=== PATIENT | female | born 1935 | race Caucasian/White ===

== ENCOUNTER 2023-04-18 13:14 | Inpatient (IN) | payer OTHER ==
[2023-04-18 14:20] LABS: Absolute Lymphocytes (CBC) 1.4 K/uL (0.7-4.9); Hematocrit 38.7 % (36.0-45.0); Lymphocytes % 20.6 % (15.3-44.8); MCV 101.6 fL (80-100); MPV 8.6 fL (7.6-11.3); RBC Red Blood Cell Count 3.81 M/uL (3.86-4.86)
[2023-04-18 14:26] LABS: Potassium 4.3 mEq/L (3.5-5.1); Troponin High Sensitivity 4.9 pg/mL (<58.9)
--- NOTE | 2023-04-18 14:33 | RAD REPORT ---
EXAM DESCRIPTION: Veronica Single View04/18/2023 2:22 pm CLINICAL HISTORY: Tachycardia COMPARISON: none FINDINGS: Moderate left pleural effusion with basilar atelectasis Right lung appears clear of acute infiltrate. Heart is mildly enlarged
--- NOTE | 2023-04-18 14:38 | ER ---
Nurse's Notes [facility] Name: Magda De Age: 87 yrs Sex: Female : 1935 Arrival Date: 04/18/2023 Time: 13:14 Bed 3 Private MD: Diagnosis: Unspecified atrial fibrillation;Tachycardia, unspecified Presentation: 04/18 13:53 Chief complaint: Patient states: EKG done prior to procedure, showed A. Fib, pt jl7 currently taking Eliquis, pt's daughter reports unsure of A Fib history, pt denies CP. Coronavirus screen: At this time, the client does not indicate any symptoms associated with coronavirus-19. Ebola Screen: No symptoms or risks identified at this time. Initial Sepsis Screen: Does the patient meet any 2 criteria? No. Patient's initial sepsis screen is negative. Does the patient have a suspected source of infection? No. Patient's initial sepsis screen is negative. Risk Assessment: Do you want to hurt yourself or someone else? Patient reports no desire to harm self or others. Onset of symptoms is unknown. Care prior to arrival: None. 13:53 Method Of Arrival: Wheelchair jl7 13:53 Acuity: OCTAVIO 2 jl7 Triage Assessment: 13:56 General: Appears in no apparent distress. uncomfortable, Behavior is calm, cooperative, jl7 appropriate for age. Pain: Denies pain. Respiratory: Reports none Onset: The symptoms/episode began/occurred at an unknown time. the patient has mild shortness of breath. Historical: - Allergies: 13:56 No Known Allergies; jl7 - Home Meds: 13:56 Eliquis oral [Active]; levothyroxine oral [Active]; jl7 - PMHx: 13:56 Hypothyroidism; high cholesterol; jl7 - Immunization history:: Adult Immunizations unknown. - Social history:: Smoking status: Patient denies any tobacco usage or history of. Screenin:05 [facility] ED Fall Risk Assessment (Adult) History of falling in the last 3 months, cm10 including since admission No falls in past 3 months (0 pts) Confusion or Disorientation No (0 pts) Intoxicated or Sedated No (0 pts) Impaired Gait No (0 pts) Mobility Assist Device Used Yes (1 pt) Altered Elimination No (0 pt) Score/Fall Risk Level 0 - 2 = Low Risk Oriented to surroundings, Maintained a safe environment, Hourly rounding (assess needs \T\ fall precautionary measures) done. Abuse screen: Denies threats or abuse. Denies injuries from another. Nutritional screening: No deficits noted. Tuberculosis screening: No symptoms or risk factors identified. Assessment: 14:06 General: Appears in no apparent distress. comfortable, Behavior is calm, cooperative. cm10 Pain: Denies pain. Neuro: No deficits noted. Level of Consciousness is awake, alert, obeys commands, Oriented to person, place, time, situation. Cardiovascular: No deficits noted. Heart tones S1 S2 Capillary refill < 3 seconds Rhythm is atrial fibrillation. Respiratory: Airway is patent Respiratory effort is even, unlabored, Respiratory pattern is regular, symmetrical, Breath sounds are clear bilaterally. 16:03 Reassessment: No changes from previously documented assessment. Patient and/or family cm10 updated on plan of care and expected duration. Pain level reassessed. Patient is alert, oriented x 3, equal unlabored respirations, skin warm/dry/pink. Pt eating lunch. 17:29 Reassessment: Reassessment: Attempt to call report at this time, nurse not available. cm10 17:30 Reassessment: No changes from previously documented assessment. Patient and/or family cm10 updated on plan of care and expected duration. Pain level reassessed. Patient is alert, oriented x 3, equal unlabored respirations, skin warm/dry/pink. 17:50 Reassessment: Attempt to give report multiple times with no success. cm10 18:00 Reassessment: After multiple unsuccessful attempts to give phone report, bedside report cm10 to be given. Vital Signs: 13:53 BP 133 / 76; Pulse 125; Resp 17; Temp 97.9; Pulse Ox 97% ; Weight 62.14 kg; Height 5 jl7 ft. 7 in. ; Pain 0/10; 14:37 BP 122 / 87; Pulse 94; Resp 18; Pulse Ox 96% on R/A; cm10 15:30 BP 134 / 95; Pulse 97; Resp 15; Pulse Ox 95% on R/A; cm10 16:00 BP 138 / 97; Pulse 112; Resp 18; Pulse Ox 95% on R/A; cm10 17:00 BP 122 / 74; Pulse 96; Resp 18; Pulse Ox 94% on R/A; cm10 17:30 BP 136 / 84; Pulse 92; Resp 17; Pulse Ox 96% on R/A; cm10 13:53 Body Mass Index 21.46 (62.14 kg, 170.18 cm) jl7 13:53 Pain Scale: Adult 7 ED Course: 13:14 Patient arrived in ED. rg4 13:34 David Franklin DO is Attending Physician. ms3 13:53 Smiley Lepe, RN is Primary Nurse. cm10 13:55 Triage completed. jl7 13:56 Arm band placed on right wrist. jl7 14:05 Basic Metabolic Panel Sent. cm10 14:05 CBC with Diff Sent. cm10 14:05 Magnesium Sent. cm10 14:05 Troponin HS Sent. cm10 14:05 Initial lab(s) drawn, by me, sent to lab. Inserted saline lock: 20 gauge in right cm10 forearm, using aseptic technique. Blood collected. 14:06 Patient has correct armband on for positive identification. Placed in gown. Bed in low cm10 position. Call light in reach. Side rails up X2. Provided Education on: N/A. 14:16 Consulted physician to see patient. Cardiology. cm10 14:24 XRAY Chest (1 view) In Process Unspecified. EDMS 14:37 Madhavi Chavez MD is Hospitalizing Provider. ms3 15:25 Rodolfo Epps is Hospitalizing Provider. ms3 17:31 No provider procedures requiring assistance completed. Patient admitted, IV remains in cm10 place. Administered Medications: 14:50 Drug: Sotalol PO 80 mg {Note: BP 122/87, per Dr. Franklin ok to give..} Route: PO; cm10 15:51 Follow up: Response: No adverse reaction cm10 Medication: 14:06 VIS not applicable for this client. cm10 Outcome: 14:38 Decision to Hospitalize by Provider. ms3 18:18 Admitted to Tele accompanied by nurse, via wheelchair, room 403, Report called to 10 Bedside report given to MARK Lagunas 18:18 Condition: good 18:18 Instructed on the need for admit. 18:22 Patient left the ED. cm10 Signatures: Dispatcher [employer] EDMS Sarah Navarro rg4 Scottie James RN RN jl7 David Franklin DO DO ms3 Roberth, Smiley, RN RN cm10
--- NOTE | 2023-04-18 14:38 | EDPHYS ---
Physician Documentation [facility] Name: Magda De Age: 87 yrs Sex: Female : 1935 Arrival Date: 04/18/2023 Time: 13:14 Bed 3 Private MD: ED Physician David Franklin HPI: 04/18 14:38 This 87 yrs old Female presents to ER via Wheelchair with complaints of Shortness Of ms3 Breath, Afib. 14:38 87-year-old female with past medical history of hypothyroidism and hyperlipidemia ms3 presents from [facility] [place] for atrial fibrillation. Patient's daughter states patient was scheduled to have a nerve block on her knee when the EKG showed atrial fibrillation. Patient was then sent to the emergency department for cardiac clearance.. Historical: - Allergies: 13:56 No Known Allergies; jl7 - Home Meds: 13:56 Eliquis oral [Active]; levothyroxine oral [Active]; jl7 - PMHx: 13:56 Hypothyroidism; high cholesterol; jl7 - Immunization history:: Adult Immunizations unknown. - Social history:: Smoking status: Patient denies any tobacco usage or history of. ROS: 14:38 Constitutional: Negative for fever, and chills. ENT: Negative for injury, pain, and ms3 discharge, Neck: Negative for injury, pain, and swelling, Cardiovascular: Negative for chest pain, and palpitations. Respiratory: Negative for shortness of breath, cough, wheezing, and pleuritic chest pain, Abdomen/GI: Negative for abdominal pain, nausea, vomiting, diarrhea, and constipation, Skin: Negative for injury, rash, and discoloration. 14:38 All other systems are negative. Exam: 14:38 Constitutional: This is a well developed, well nourished patient who is awake, alert, ms3 and in no acute distress. Head/Face: Normocephalic, atraumatic. Chest/axilla: Normal chest wall appearance and motion. Nontender with no deformity. 14:53 ECG was reviewed by the Attending Physician. ms3 Vital Signs: 13:53 BP 133 / 76; Pulse 125; Resp 17; Temp 97.9; Pulse Ox 97% ; Weight 62.14 kg; Height 5 jl7 ft. 7 in. ; Pain 0/10; 14:37 BP 122 / 87; Pulse 94; Resp 18; Pulse Ox 96% on R/A; cm10 15:30 BP 134 / 95; Pulse 97; Resp 15; Pulse Ox 95% on R/A; cm10 16:00 BP 138 / 97; Pulse 112; Resp 18; Pulse Ox 95% on R/A; cm10 17:00 BP 122 / 74; Pulse 96; Resp 18; Pulse Ox 94% on R/A; cm10 17:30 BP 136 / 84; Pulse 92; Resp 17; Pulse Ox 96% on R/A; cm10 13:53 Body Mass Index 21.46 (62.14 kg, 170.18 cm) jl7 13:53 Pain Scale: Adult jl7 MDM: 13:42 Patient medically screened. ms3 14:48 Differential diagnosis: Myocardial Infarction A fib vs Electrolyte abnormality. Data ms3 reviewed: vital signs, nurses notes, lab test result(s), EKG, radiologic studies, and as a result, I will admit patient. Consideration of Admission/Observation Patient was admitted/placed on observation. Management of patient was discussed with the following: Hospitalist: Dr Epps. Bark Scaler: Dr Ni. I considered the following discharge prescriptions or medication management in the emergency department Medications were administered in the Emergency Department. See MAR. Independent interpretation of the following test(s) in the Emergency Department EKG: See my EKG interpretation above eyelet row marker: rate is 102 beats/min, Rhythm is atrial fibrillation, with no ectopy, Interpretation: atrial fibrillation, tachycardia. Historians other than the Patient: Daughter/Son: Patient's daughter. External Records Reviewed: EKG performed at surgery center prior to arrival shows atrial fibrillation with a heart rate of 113, normal axis. Care significantly affected by the following chronic conditions: Hypothyroidism, HLD. Counseling: I had a detailed discussion with the patient and/or guardian regarding: the historical points, exam findings, and any diagnostic results supporting the discharge/admit diagnosis, lab results, radiology results, the need for further work-up and treatment in the hospital. ED course: Case discussed with Dr. Harris. If creatinine normal patient to begin sotalol 80 mg twice daily and will need observation. Discussed case with Dr. Beverly suarez and he accepts patient as observation.. 04/18 13:42 Order name: Basic Metabolic Panel; Complete Time: 14:33 ms3 04/18 13:42 Order name: CBC with Diff; Complete Time: 14:33 ms3 04/18 13:42 Order name: Magnesium; Complete Time: 14:33 ms3 04/18 13:42 Order name: Troponin HS; Complete Time: 14:33 ms3 04/18 13:42 Order name: XRAY Chest (1 view); Complete Time: 14:33 ms3 04/18 13:42 Order name: EKG; Complete Time: 13:43 ms3 04/18 13:42 Order name: Cardiac monitoring; Complete Time: 13:51 ms3 04/18 13:42 Order name: EKG - Nurse/Tech; Complete Time: 13:51 ms3 04/18 13:42 Order name: IV Saline Lock; Complete Time: 13:51 ms3 04/18 13:42 Order name: Labs collected and sent; Complete Time: 13:51 ms3 04/18 13:42 Order name: O2 Per Protocol; Complete Time: 13:51 ms3 04/18 13:42 Order name: O2 Sat Monitoring; Complete Time: 13:51 ms3 EC:53 Rate is 113 beats/min. Rhythm is irregularly irregular. QRS Hollis is Normal. QRS ms3 interval is normal. Clinical impression: Atrial Fibrillation and with RVR. Interpreted by me. Reviewed by me. Administered Medications: 14:50 Drug: Sotalol PO 80 mg {Note: BP 122/87, per Dr. Franklin ok to give..} Route: PO; cm10 15:51 Follow up: Response: No adverse reaction cm10 Disposition Summary: 04/18/23 14:38 Hospitalization Ordered Hospitalization Status: Observation ms3 Location: Telemetry/MedSurg (observation) ms3 Condition: Stable ms3 Problem: new ms3 Symptoms: are unchanged ms3 Bed/Room Type: Standard ms3 Provider: Rodolfo Epps(04/18/23 15:25) ms3 Room Assignment: [facility](04/18/23 17:20) Diagnosis - Unspecified atrial fibrillation ms3 - Tachycardia, unspecified ms3 Forms: - Medication Reconciliation Form ms3 - SBAR form ms3 Signatures: Dispatcher [employer] Carmen Green RN RN dw Leal, Jahala, RN RN jl7 David Franklin DO DO ms3 Roberth, Smiley, RN RN cm10 Corrections: (The following items were deleted from the chart) 15: 14:38 Madhavi Chavez ms3 ms3 17: 14:38 ms3 dw
[2023-04-18] MEDS ORDERED: SOTALOL HCL 80 MG TAB ONE (14:47)
--- NOTE | 2023-04-18 16:05 | P.HP ---
Certification for Inpatient Patient admitted to: Observation With expected LOS: <2 Midnights Practitioner: I am a practitioner with admitting privileges, knowledge of patient current condition, hospital course, and medical plan of care. Services: Services provided to patient in accordance with Admission requirements found in Title 42 Section 412.3 of the Code of Federal Regulations Patient History Date of Service: 04/18/23 Reason for admission: Rapid heart rate History of Present Illness: 87-year-old woman with a history of hypothyroidism, chronic atrial fibrillation and hypercholesterolemia was referred to the emergency department due to rapid atrial fibrillation noted on the exterior work helper while patient was being prepped for the procedure. She has a history of chronic knee osteoarthritis, came to the hospital for intra-articular injection for pain control. Rapid atrial fibrillation was noted and patient directed to the emergency department. Patient denies any palpitation or shortness of breath. Labs in the ED unremarkable, troponin is negative. Cardiology Dr. Ni contacted who recommended sotalol. Patient given a dose of sotalol and placed on observation for further management. - Past Medical/Surgical History -: Hypothyroidism -: Atrial fibrillation -: Hypercholesterolemia -: Knee surgery - Social History Alcohol use: No Place of Residence: Home Review of Systems Other: No reported chest pain, no nausea or vomiting or fever. Except as documented, all other systems reviewed and negative. Physical Examination - Physical Exam General: Alert, In no apparent distress, Oriented x3 HEENT: Mucous membr. moist/pink Neck: Supple, JVD not distended Respiratory: Clear to auscultation bilaterally, Normal air movement Cardiovascular: No edema, Normal S1 S2, Irregular heart rate/rhythm Capillary refill: <2 Seconds Gastrointestinal: Normal bowel sounds, Soft and benign, Non-distended, No tenderness Musculoskeletal: No swelling, No tenderness Integumentary: No rashes, No cyanosis Neurological: Normal speech, Normal strength at 5/5 x4 extr Lymphatics: No axilla or inguinal lymphadenopathy - Studies Laboratory Data (last 24 hrs) 04/18/23 14:02: WBC 6.60, Hgb 12.5, Hct 38.7, Plt Count 239 04/18/23 14:02: Sodium 138, Potassium 4.3, BUN 12, Creatinine 0.68, Glucose 91, Magnesium 2.0 Assessment and Plan - Problems (Diagnosis) (1) Rapid atrial fibrillation Current Visit: Yes Status: Acute (2) Hyperlipidemia Current Visit: Yes Status: Acute (3) Osteoarthritis of knee Current Visit: Yes Status: Acute - Plan Place patient under observation. Trend troponin Continue sotalol recommended by cardiology Obtain echocardiogram Cardiology consult Patient is already on Eliquis which will be continued during the hospital stay. Monitor and optimize electrolytes Pain management for osteoarthritis as needed. PT consult.
[2023-04-18 18:46] VITALS: BMI 21.4
[2023-04-18] MEDS ORDERED: ACETAMINOPHEN 500 MG TAB PO PRN (19:08)
--- NOTE | 2023-04-18 20:36 | CON ---
Date of Consultation: 04/18/2023 Reason For Consultation: Atrial fibrillation. History Of Present Illness: 87-year-old female with a past medical history of dyslipidemia, hypothyr oidism. She was on Eliquis at home, maybe she has known diagnosis of atrial fibrillation. She prese nted with palpitations, found to be in atrial fibrillation, slightly rapid heart rate. No chest pain . No shortness of breath. Denies having any diarrhea, nausea, or vomiting. No abdominal pain. Past Medical History: As outlined above in the HPI. Medications: Refer to reconciliation sheet for detailed list. Allergies: NO KNOWN DRUG ALLERGIES. Family History: No premature coronary artery disease or cancer. Social History: She does not smoke or drink. Does not use any drugs. Review of Systems: All systems reviewed. They were negative except as mentioned in HPI. Physical Examination: Vital Signs: Reviewed. Head and Neck: Pupils are equal, reactive to light. Intact eye movements. No JVD. No cervical lym phadenopathy. Neck is supple. Thyroid is not enlarged. Lungs: Clear to auscultation bilaterally. No rhonchi, wheezing, or crackles. No accessory muscle u se. Heart: Irregularly irregular. No extra sounds. Abdomen: Soft, nontender. Bowel sounds positive. No organomegaly. No masses or hernia. No rigidi ty or rebound. Extremities: No clubbing or cyanosis. Intact pulses. Skin: No rash. No nodules. Neurologic: Alert, awake, oriented x3. No acute focal deficits appreciated. Investigations: BUN 12, creatinine 0.68, and hemoglobin 12.5. Assessment And Recommendations: 1.Atrial fibrillation with rapid ventricular response. Can start on sotalol 80 mg twice a day. Aft er the third dose, check EKG for QTc interval and also continue Eliquis 5 mg twice a day. 2.Dyslipidemia. Check lipids and treat accordingly. SR/MODL Voice ID: [id number] Report ID: [id number]
[2023-04-18] MEDS: ATORVASTATIN 40 MG TAB PO SCH (21:30)
[2023-04-18] MEDS: BUSPIRONE HCL 5 MG TABLET PO SCH (21:30)
[2023-04-19 04:21] LABS: Absolute Lymphocytes (CBC) 1.5 K/uL (0.7-4.9); Hematocrit 34.7 % (36.0-45.0); Lymphocytes % 29.3 % (15.3-44.8); MCV 101.4 fL (80-100); MPV 8.6 fL (7.6-11.3); RBC Red Blood Cell Count 3.42 M/uL (3.86-4.86)
[2023-04-19 04:47] LABS: Phosphorus 3.3 mg/dL (2.5-4.9); Potassium 4.2 mEq/L (3.5-5.1)
[2023-04-19 05:33] LABS: Thyroid Stimulating Hormone 4.05 uIU/mL (0.358-3.740)
[2023-04-19] MEDS: LEVOTHYROXINE SOD 0.125 MG TAB PO SCH (06:34)
[2023-04-19] MEDS: SOTALOL HCL 80 MG TAB PO SCH ×2 (06:34→17:10)
[2023-04-19] MEDS ORDERED: APIXABAN 5 MG TABLET PO SCH (09:00)
[2023-04-19] MEDS: APIXABAN 5 MG TABLET PO SCH ×2 (09:05→20:16)
[2023-04-19] MEDS: BUSPIRONE HCL 5 MG TABLET PO SCH ×2 (09:05→20:16)
--- NOTE | 2023-04-19 18:03 | P.PN ---
Subjective Date of Service: 04/19/23 Chief Complaint: Rapid heart rate Patient has no new complaint. She states she feels fine. No issues overnight. Physical Examination - Vital Signs Temperature: 99.2 F Blood Pressure: 127/77 Pulse: 72 Respirations: 18 Pulse Ox (%): 96 - Physical Exam General: Alert, In no apparent distress, Oriented x3 HEENT: Mucous membr. moist/pink Neck: Supple, JVD not distended Respiratory: Clear to auscultation bilaterally, Normal air movement Cardiovascular: Normal S1 S2, Irregular heart rate/rhythm Gastrointestinal: Soft and benign, Non-distended, No tenderness Musculoskeletal: No swelling Neurological: Normal speech, Normal strength at 5/5 x4 extr, Cranial nerves 3-12 intact Assessment And Plan - Current Problems (Diagnosis) (1) Rapid atrial fibrillation Current Visit: Yes Status: Acute (2) Hyperlipidemia Current Visit: Yes Status: Acute (3) Osteoarthritis of knee Current Visit: Yes Status: Acute - Plan Troponin trended negative Continue sotalol recommended by cardiology Obtain echocardiogram Cardiology input appreciated. I spoke to Dr. Ni. Obtain EKGs to follow-up QT interval after third dose of Sotalol Continue Eliquis. Monitor and optimize electrolytes Pain management for osteoarthritis as needed. PT. Possible discharge in a.m.
[2023-04-19] MEDS: ATORVASTATIN 40 MG TAB PO SCH (20:16)
[2023-04-19] MEDS: MORPHINE 2 MG/ML SYR IV PRN (21:53)
[2023-04-20] MEDS: MORPHINE 2 MG/ML SYR IV PRN (01:49)
[2023-04-20] MEDS: SOTALOL HCL 80 MG TAB PO SCH ×2 (06:33→17:35)
[2023-04-20] MEDS: LEVOTHYROXINE SOD 0.125 MG TAB PO SCH (06:33)
[2023-04-20] MEDS: APIXABAN 5 MG TABLET PO SCH ×2 (07:45→20:28)
[2023-04-20] MEDS: BUSPIRONE HCL 5 MG TABLET PO SCH ×2 (07:45→20:28)
--- NOTE | 2023-04-20 13:09 | EKG ---
Test Date: 2023-04-20 Test Time: 09:54:13 Pressing Department Supervisor: EDUARDO MEASUREMENT RESULTS: Intervals: Rate: 78 ID: QRSD: 70 QT: 384 QTc: 437 [place]: P: ID: QRS: 74 T: 78 INTERPRETIVE STATEMENTS: Atrial fibrillation with a competing junctional pacemaker Abnormal ECG Compared to ECG 04/18/2023 13:53:41 No significant changes Electronically Signed On 04-20-23 13:08:31 CDT by Brian Ni
--- NOTE | 2023-04-20 13:16 | EKG ---
Test Date: 2023-04-18 Test Time: 13:53:41 Accounting Professional: PHILL MEASUREMENT RESULTS: Intervals: Rate: 113 [place]: QRSD: 70 QT: 324 QTc: 444 [place]: P: MI: QRS: 58 T: 87 INTERPRETIVE STATEMENTS: Atrial fibrillation with rapid ventricular response Abnormal ECG No previous ECG available for comparison Electronically Signed On 04-20-23 13:12:35 CDT by Brian Ni
--- NOTE | 2023-04-20 14:34 | P.PN ---
Subjective Date of Service: 04/20/23 Chief Complaint: Rapid heart rate Patient has no new complaint. She states she feels fine. No issues overnight. Physical Examination - Vital Signs Temperature: 99.5 F Blood Pressure: 114/70 Pulse: 77 Respirations: 16 Pulse Ox (%): 96 - Physical Exam General: Alert, In no apparent distress HEENT: Mucous membr. moist/pink Neck: Supple, JVD not distended Respiratory: Clear to auscultation bilaterally, Normal air movement Cardiovascular: Irregular heart rate/rhythm Gastrointestinal: Normal bowel sounds, Soft and benign Musculoskeletal: No swelling, No tenderness Integumentary: No rashes, No cyanosis Neurological: Normal strength at 5/5 x4 extr Assessment And Plan - Current Problems (Diagnosis) (1) Rapid atrial fibrillation Current Visit: Yes Status: Acute (2) Hyperlipidemia Current Visit: Yes Status: Acute (3) Osteoarthritis of knee Current Visit: Yes Status: Acute - Plan Troponin trended negative Continue sotalol recommended by cardiology Obtain echocardiogram Repeat EKG shows normal QT and atrial flutter. Case discussed with cardiology Dr. Ni who is recommending LEEANN and cardioversion tomorrow. Continue Eliquis. Monitor and optimize electrolytes Pain management for osteoarthritis as needed. PT.
--- NOTE | 2023-04-20 15:00 | PN ---
Date of Progress Note: 04/20/2023 Subjective: Seen by bedside. She is still doing well, but still in atrial fibrillation. No palpita tions. Review of Systems: No chest pain, shortness of breath, orthopnea, cough. No nausea, vomiting, diarrhea. All other syst ems reviewed and they were negative. Physical Examination: Vital Signs: Reviewed. Head and Neck: Pupils are equal, reactive to light. Intact eye movements. No JVD. No cervical lym phadenopathy. Neck is supple. Thyroid is not enlarged. Lungs: Clear to auscultation bilaterally. No rhonchi, wheezing, or crackles. No accessory muscle u se. Heart: Irregularly irregular. No extra sounds. Abdomen: Soft, nontender. Bowel sounds positive. No organomegaly. No masses or hernia. No rigidi ty or rebound. Extremities: No edema, clubbing, or cyanosis. Intact pulses. Skin: No rash. Neurologic: Alert, awake, oriented x3. No acute focal deficits appreciated. Investigations: TSH is 4.0. BUN is 14, creatinine 0.64, and hemoglobin is 11.4. Assessment And Recommendations: 1.Atrial fibrillation with rapid ventricular response. Now rate is controlled, is in the 40s. Cont inue sotalol and Eliquis. Plan for LEEANN-guided cardioversion tomorrow. 2.Dyslipidemia. Continue statin. 3.Hypothyroidism. TSH is within acceptable range. Continue current management. SR/MODL Voice ID: [id number] Report ID: [id number]
[2023-04-20] MEDS: ATORVASTATIN 40 MG TAB PO SCH (20:27)
[2023-04-20 20:41] VITALS: O2SAT 95
[2023-04-21 04:01] LABS: Absolute Lymphocytes (CBC) 1.4 K/uL (0.7-4.9); Hematocrit 35.6 % (36.0-45.0); Lymphocytes % 21.1 % (15.3-44.8); MCV 101.3 fL (80-100); MPV 8.7 fL (7.6-11.3); RBC Red Blood Cell Count 3.51 M/uL (3.86-4.86)
[2023-04-21] MEDS: LEVOTHYROXINE SOD 0.125 MG TAB PO SCH (06:01)
[2023-04-21] MEDS: SOTALOL HCL 80 MG TAB PO SCH (06:01)
[2023-04-21] MEDS: APIXABAN 5 MG TABLET PO SCH (08:14)
[2023-04-21] MEDS: BUSPIRONE HCL 5 MG TABLET PO SCH (08:14)
[2023-04-21] MEDS ORDERED: NA CHLORIDE 0.9% 0 ML ONE (09:19)
[2023-04-21] MEDS ORDERED: HYDRALAZINE HCL 20 MG/ML VIAL ONE (09:56)
[2023-04-21] MEDS ORDERED: MIDAZOLAM HCL 5 ML ONE (09:56)
[2023-04-21] MEDS ORDERED: METOPROLOL TARTRATE 5 MG/5 ML INJ IV ONE (09:56)
[2023-04-21] MEDS ORDERED: NA CHLORIDE 0.9% 500 ML ONE (09:57)
[2023-04-21] MEDS ORDERED: FLUMAZENIL 0.1 MG/ML (5 mL VIAL) IV ONE (09:57)
[2023-04-21] MEDS ORDERED: LIDOCAINE VISCOUS 2% 10ML ORAL SOLN ONE (09:57)
[2023-04-21] MEDS ORDERED: ATROPINE SULF 1 MG/10 ML SYR IV ONE (09:58)
[2023-04-21] MEDS ORDERED: SIMPLE SYRUP 10 ML, LIDOCAINE 2% VISCOUS ORAL 10 ML MM ONE ×2 (10:00)
--- NOTE | 2023-04-21 12:30 | P.PN ---
Subjective Date of Service: 04/21/23 Chief Complaint: Rapid heart rate Patient has no new complaint. No issues overnight Physical Examination - Vital Signs Temperature: 97.3 F Blood Pressure: 115/59 Pulse: 74 Respirations: 16 Pulse Ox (%): 100 - Physical Exam General: Alert, In no apparent distress, Oriented x3 HEENT: Mucous membr. moist/pink Neck: JVD not distended Respiratory: Clear to auscultation bilaterally, Normal air movement Cardiovascular: No edema, Normal S1 S2, Irregular heart rate/rhythm Gastrointestinal: Soft and benign, Non-distended Musculoskeletal: No swelling Integumentary: No rashes, No cyanosis Neurological: Normal strength at 5/5 x4 extr Assessment And Plan - Current Problems (Diagnosis) (1) Rapid atrial fibrillation Current Visit: Yes Status: Acute (2) Hyperlipidemia Current Visit: Yes Status: Acute (3) Osteoarthritis of knee Current Visit: Yes Status: Acute - Plan Troponin trended negative Continue sotalol recommended by cardiology Echocardiogram is pending Repeat EKG shows normal QT and atrial flutter. Patient is scheduled for LEEANN and cardioversion by Dr. Ni today. Continue Eliquis. Monitor and optimize electrolytes Continue PT.
[2023-04-21] MEDS ORDERED: HYDROCODONE/APAP 7.5/325 MG TAB PO PRN (12:35)
--- NOTE | 2023-04-21 14:11 | OP ---
Date of Procedure: 04/21/2023 Surgeon: STEPHAN ALMANZA Procedure Performed: 1.Transesophageal electrocardiogram. 2.Electrical cardioversion using 200 joules in synchronized fashion. Indication: Atrial fibrillation. Description Of Procedure: After risks, benefits, alternatives were explained, patient agreed to proc edure and signed informed consent. After proper time-out, the back of throat was numbed using viscou s and lidocaine, and then I gave 5 mg of Versed and then inserted LEEANN probe and no appendage thrombus was seen. LEEANN probe was removed and then synchronized 200 joules electrical cardioversion was perfo rmed successfully converting the rhythm into normal sinus rhythm. Conclusion: Successful LEEANN-guided electrical cardioversion. Plan: Continue sotalol and Eliquis. SR/MODL Voice ID: [id number] Report ID: [id number]
--- NOTE | 2023-04-21 14:41 | P.DS ---
Admission Date: 04/20/23 Discharge Date: 04/21/23 Disposition: DC HOME/HOME HEALTH CARE Discharge Condition: FAIR Reason for Admission: Rapid heart rate - Problems (1) Rapid atrial fibrillation Current Visit: Yes Status: Acute (2) Hyperlipidemia Current Visit: Yes Status: Acute (3) Osteoarthritis of knee Current Visit: Yes Status: Acute Brief History of Present Illness: 87-year-old woman with a history of hypothyroidism, chronic atrial fibrillation and hypercholesterolemia was referred to the emergency department due to rapid atrial fibrillation noted on the conveyor monitor while patient was being prepped for the procedure. She has a history of chronic knee osteoarthritis, came to the hospital for intra-articular injection for pain control. Rapid atrial fibrillation was noted and patient directed to the emergency department. Patient denies any palpitation or shortness of breath. Labs in the ED unremarkable, troponin is negative. Cardiology Dr. Ni contacted who recommended sotalol. Patient given a dose of sotalol and hospitalized for further management. Hospital Course: Patient admitted to the medical floor Troponin trended negative She was started on sotalol perCardiology Dr. Ni recommendation. Echocardiogram done. Repeat EKG shows normal QT and atrial flutter. Patient seen by Dr. Ni. She underwent LEEANN and electrocardioversion. Patient subsequently converted to sinus rhythm. Patient was on Eliquis during the hospital stay. She is discharged with Eliquis for A-fib anticoagulation Patient deemed stable for discharge per cardiology. Vital Signs/Physical Exam: Temp Pulse Resp BP Pulse Ox 97.3 F 74 16 115/59 L 100 04/21/23 12:35 04/21/23 12:35 04/21/23 12:35 04/21/23 12:35 04/21/23 12:35 General: Alert, In no apparent distress, Oriented x3 HEENT: Mucous membr. moist/pink Neck: JVD not distended Respiratory: Clear to auscultation bilaterally, Normal air movement Cardiovascular: No edema, Regular rate/rhythm, Normal S1 S2 Gastrointestinal: Soft and benign, Non-distended Musculoskeletal: No swelling Integumentary: No rashes, No cyanosis Neurological: Normal strength at 5/5 x4 extr Laboratory Data at Discharge: WBC 6.80 thou/uL (4.3-10.9) 04/21/23 03:22 Hgb 11.7 g/dL (12.0-15.0) L 04/21/23 03:22 Hct 35.6 % (36.0-45.0) L 04/21/23 03:22 Plt Count 210 thou/uL (152-406) 04/21/23 03:22 Sodium 135 mEq/L (136-145) L 04/21/23 03:22 Potassium 4.0 mEq/L (3.5-5.1) 04/21/23 03:22 BUN 12 mg/dL (7-18) 04/21/23 03:22 Creatinine 0.51 mg/dL (0.55-1.02) L 04/21/23 03:22 Glucose 113 mg/dL (74-106) H 04/21/23 03:22 Phosphorus 3.3 mg/dL (2.5-4.9) 04/19/23 03:32 Magnesium 2.0 mg/dL (1.6-2.4) 04/19/23 03:32 Home Medications: Acetaminophen [Tylenol Extra Strength] 2 tab PO BIDWM 04/18/23 Apixaban [Eliquis] 1 tab PO BID 04/18/23 Buspirone HCl [Buspar*] 1 tab PO BID 04/18/23 Ca Citrate/Mgox/Vit D3/B6/Min [Citracal Plus Tablet] 2 tab PO DAILY 04/18/23 Cyanocobalamin (Vitamin B-12) [Vitamin B-12] 1 tab PO DAILY 04/18/23 Hydrocodone 7.5/APAP 325 [[place] 7.5/325 mg*] 1 tab PO BIDP PRN 04/18/23 Levothyroxine [Synthroid*] 125 mcg PO [id number] 04/18/23 Apixaban [Eliquis] 5 mg PO BID #60 tab 04/21/23 Atorvastatin Calcium [Lipitor] 1 tab PO BEDTIME #30 tab 04/21/23 Sotalol HCl [Betapace*] 80 mg PO BID 6AM 6PM #60 tab 04/21/23 New Medications: Sotalol HCl [Betapace*] 80 mg PO BID 6AM 6PM #60 tab Apixaban [Eliquis] 5 mg PO BID #60 tab Atorvastatin Calcium [Lipitor] 1 tab PO BEDTIME #30 tab Diet: AHA Activity: Fall precautions Followup: Tl Velasquez MD [Primary Care Provider] - Time spent managing pt's care (in minutes): 36
--- NOTE | 2023-04-21 14:56 | PN ---
Date of Progress Note: 04/21/2023 Subjective: Seen by bedside. Continues to be in atrial fibrillation. Review of Systems: No chest pain, shortness of breath, orthopnea, cough. No nausea, vomiting, diarrhea. All other syst ems reviewed and they were negative. Physical Examination: Vital Signs: Reviewed. Head and Neck: Pupils are equal, reactive to light. Intact eye movements. No JVD. No cervical lym phadenopathy. Neck is supple. Thyroid is not enlarged. Lungs: Clear to auscultation bilaterally. No rhonchi, wheezing, or crackles. No accessory muscle u se. Heart: Irregularly irregular. No extra sounds. Abdomen: Soft, nontender. Bowel sounds positive. No organomegaly. No masses or hernia. No rigidi ty or rebound. Extremities: No edema, clubbing, or cyanosis. Intact pulses. Skin: No rash. Neurologic: Alert, awake, oriented x3. No acute focal deficits appreciated. Investigations: Labs were reviewed. Assessment And Recommendations: 1.Atrial fibrillation. Still in atrial fibrillation despite sotalol and she is n.p.o. Plan for LEEANN -guided cardioversion. 2.Hypertension. Blood pressure is controlled. Continue current management. SR/MODL Voice ID: [id number] Report ID: [id number]
[2023-04-21 17:04] VITALS: BP 104/53; TEMP 99.8
--- NOTE | 2023-04-22 07:53 | TEE ---
TRANSESOPHAGEAL ECHOCARDIOGRAM REPORT CARDIOLOGY DEPARTMENT DATE OF STUDY: 04/21/2023 HEIGHT: 5'7 WEIGHT: 137 DIAGNOSIS: ATRIAL FIBRILLATION CARDIAC HISTORY: CATHERIZATION: NO SURGERY: NO PROSTHETIC VALVE: NO PACEMAKER: NO EJECTION FRACTION: 55-60 % DOPPLER/COLOR FLOW: COMMENTS: 1. LEEANN PROBE WAS INSERTED WITH NO DIFFICLTY. 2. NO LEFT ATRIAL APPENDAGE THROMBUS. 3. NORMAL LEFT VENTRICULAR EJECTION FRACTION 55-60%. 4. MILD MITRAL REGURGITATION. TECHNOLOGIST: Nhi CASTELLON
[2023-04-22] MEDS ORDERED: CALCIUM CARB 500MG/VIT D 200 IU TAB PO SCH (09:00)
[2023-04-22] MEDS ORDERED: CYANOCOBALAMIN 1,000 MCG TAB PO SCH (09:00)
--- NOTE | 2023-04-23 17:43 | EKG ---
Test Date: 2023-04-21 Test Time: 11:31:39 Dish Up Person: EDUARDO MEASUREMENT RESULTS: Intervals: Rate: 49 MT: 196 QRSD: 68 QT: 428 QTc: 386 [place]: P: 50 MT: 196 QRS: 61 T: 73 INTERPRETIVE STATEMENTS: Marked sinus bradycardia Low voltage QRS Abnormal ECG Compared to ECG 04/20/2023 09:54:13 Low QRS voltage now present Atrial fibrillation no longer present Electronically Signed On 04-23-23 17:35:59 CDT by Brian Ni
== END 2023-04-21 18:30 | disposition home health service (06) | DRG 310 ==
LOC: ER 13:14 → ERHOLD 15:51 → 4TH 18:02 → OBSVTOIN 04-20 16:05
PROVIDERS: ADMIT Internal Medicine; ATTEND Internal Medicine
PROC: 5A2204Z Restoration of Cardiac Rhythm, Single (ICD-10-PCS; principal; 2023-04-20)
PROC: B24BZZ4 Ultrasonography of Heart with Aorta, Transesophageal (ICD-10-PCS; 2023-04-20)
DX: I48.20 Chronic atrial fibrillation, unspecified (principal); I48.92 Unspecified atrial flutter; I10 Essential (primary) hypertension; M17.10 Unilateral primary osteoarthritis, unspecified knee; E78.5 Hyperlipidemia, unspecified; E03.9 Hypothyroidism, unspecified; I34.0 Nonrheumatic mitral (valve) insufficiency; E78.00 Pure hypercholesterolemia, unspecified; Z79.01 Long term (current) use of anticoagulants; Z79.899 Other long term (current) drug therapy
CPT/HCPCS: 36415; 71045; 80048; 83735; 84100; 84439; 84443; 84484; 85025; 92960; 93005; 93312; 94760; 97116; 97161; 99285; J0360; J0461; J2250; J2270; J7040

== ENCOUNTER 2023-05-05 15:22 | Inpatient (IN) | payer OTHER ==
[2023-05-05 15:42] LABS: Absolute Lymphocytes (CBC) 1.5 K/uL (0.7-4.9); Hematocrit 33.3 % (36.0-45.0); Lymphocytes % 22.6 % (15.3-44.8); MCV 101.2 fL (80-100); MPV 8.8 fL (7.6-11.3); Platelets 223 thou/uL (152-406); RBC Red Blood Cell Count 3.29 M/uL (3.86-4.86)
[2023-05-05 16:04] LABS: Potassium 4.4 mEq/L (3.5-5.1); Troponin High Sensitivity 5.5 pg/mL (<58.9)
--- NOTE | 2023-05-05 16:13 | RAD REPORT ---
EXAM DESCRIPTION: RAD - Chest Single View - 05/05/2023 4:06 pm CLINICAL HISTORY: generalized weakness, bradycardia Chest pain. COMPARISON: <Comparisons> FINDINGS: Portable technique limits examination quality. The lungs are grossly clear. Large left pleural effusion. The heart size is mildly prominent. IMPRESSION: Large left pleural effusion, mildly increased since 04/18/2023.
--- NOTE | 2023-05-05 16:13 | EDPHYS ---
Physician Documentation [facility] Name: Magda De Age: 87 yrs Sex: Female : 1935 Arrival Date: 05/05/2023 Time: 15:22 Bed 2 Private MD: ED Physician David Franklin HPI: 05/05 16:08 This 87 yrs old Female presents to ER via EMS with complaints of Bradycardia, General ms3 Weakness. 16:08 87-year-old female past medical history of hyperlipidemia, hypothyroidism, atrial ms3 fibrillation presents via [facility] for sinus bradycardia and generalized weakness. EMS notes patient was working with physical therapy and noted to be weak. Physical therapy checked patient's heart rate to find it in the 30s. EMS notes patient to be sinus bradycardic on bus driver/monitor. Patient's blood pressure normotensive. Patient without pain. Patient denies alleviating or inciting factors.. Historical: - Allergies: 15:31 Tape; ld1 - PMHx: 15:31 High Cholesterol; Hypothyroidism; Atrial fibrillation; ld1 - Immunization history:: Adult Immunizations up to date. - Social history:: Smoking status: Patient denies any tobacco usage or history of. ROS: 16:08 Neck: Negative for injury, pain, and swelling. ms3 16:08 Cardiovascular: Negative for chest pain, and palpitations. Respiratory: Negative for shortness of breath, cough, wheezing, and pleuritic chest pain, Abdomen/GI: Negative for abdominal pain, nausea, vomiting, diarrhea, and constipation. 16:08 MS/Extremity: Negative for injury and deformity, Skin: Negative for injury, rash, and discoloration. 16:08 Constitutional: Positive for Generalized weakness. 16:08 All other systems are negative. Exam: 16:02 ECG was reviewed by the Attending Physician. ms3 16:08 Constitutional: This is a well developed, well nourished patient who is awake, alert, ms3 and in no acute distress. Head/Face: Normocephalic, atraumatic. Eyes: Pupils equal round and reactive to light, extra-ocular motions intact. Lids and lashes normal. Conjunctiva and sclera are non-icteric and not injected. Periorbital areas with no swelling, redness, or edema. Chest/axilla: Normal chest wall appearance and motion. Nontender with no deformity. Cardiovascular: Regular rate and rhythm with a normal S1 and S2. No gallops, murmurs, or rubs. Normal PMI, no JVD. No pulse deficits. Respiratory: Lungs have equal breath sounds bilaterally, clear to auscultation and percussion. No rales, rhonchi or wheezes noted. No increased work of breathing, no retractions or nasal flaring. Abdomen/GI: Soft, non-tender, with normal bowel sounds. No distension or tympany. No guarding or rebound. No evidence of tenderness throughout. Skin: Warm, dry with normal turgor. Normal color with no rashes, no lesions, and no evidence of cellulitis. MS/ Extremity: Pulses equal, no cyanosis. Neurovascular intact. Full, normal range of motion. Neuro: Awake and alert, GCS 15, oriented to person, place, time, and situation. Cranial nerves II-XII grossly intact. Motor strength 5/5 in all extremities. Sensory grossly intact. Cerebellar exam normal. Normal gait. Vital Signs: 15:29 BP 139 / 70; Pulse 38; Resp 18; Temp 97.6(O); Pulse Ox 97% on R/A; Weight 68.5 kg; ld1 Height 5 ft. 2 in. ; Pain 0/10; 16:26 BP 133 / 58; Pulse 40; Resp 18; Pulse Ox 97% on R/A; ld1 17:00 BP 154 / 63; Pulse 39; Resp 14; Pulse Ox 95% on R/A; ld1 17:30 BP 155 / 69; Pulse 39; Resp 17; Pulse Ox 95% on R/A; ld1 18:00 BP 120 / 56; Pulse 33; Resp 14; Pulse Ox 92% on R/A; ld1 18:30 BP 132 / 61; Pulse 34; Resp 15; Pulse Ox 94% on R/A; ld1 18:54 BP 138 / 64; Pulse 34; Resp 15; Pulse Ox 94% on R/A; ld1 19:04 Temp 97.3(TE); jb4 19:26 BP 152 / 65; Pulse 42; Resp 16; Pulse Ox 94% on R/A; jb4 19:45 BP 162 / 59; Pulse 42; Resp 17; Pulse Ox 94% on R/A; kl 15:29 Body Mass Index 27.62 (68.50 kg, 157.48 cm) ld1 15:29 Pain Scale: Adult ld1 MDM: 15:24 Patient medically screened. ms3 16:08 Differential Diagnosis Beta blockade vs Heart block vs [place]. Data reviewed: vital signs, ms3 nurses notes, lab test result(s), EKG, radiologic studies, and as a result, I will admit patient. Consideration of Admission/Observation Patient was admitted/placed on observation. Management of patient was discussed with the following: Hospitalist: Barrett on behalf of Dr Epps. Independent interpretation of the following test(s) in the Emergency Department EKG: See my EKG interpretation above X-Ray: My interpretation is CXR image reviewed by me shows left sided pleural effusion similar to 04/18/23. Historians other than the Patient: EMS: [facility]. Counseling: I had a detailed discussion with the patient and/or guardian regarding: the historical points, exam findings, and any diagnostic results supporting the discharge/admit diagnosis, lab results, radiology results, the need for further work-up and treatment in the hospital. ED course: Discussed necessity for admission with patient. Patient understands agrees plan. All questions were answered.. 16:50 Management of patient was discussed with the following: Security Trainer: Discussed case with ms3 Dr Ni. He will consult on patient.. 05/05 15:30 Order name: Basic Metabolic Panel; Complete Time: 16:06 ms3 05/05 15:30 Order name: CBC with Diff; Complete Time: 16:06 ms3 05/05 15:30 Order name: Troponin HS; Complete Time: 16:06 ms3 05/05 17:42 Order name: Magnesium EDMS 05/05 17:42 Order name: Phosphorus EDMS 05/05 17:42 Order name: T4 Free EDMS 05/05 17:42 Order name: Thyroid Stimulating Hormone EDMS 05/05 17:42 Order name: Urinalysis w/ reflexes EDMS 05/05 17:42 Order name: Basic Metabolic Panel EDMS 05/05 17:42 Order name: Basic Metabolic Panel EDMS 05/05 17:42 Order name: CBC with Automated Diff EDMS 05/05 17:42 Order name: CBC with Automated Diff EDMS 05/05 15:30 Order name: XRAY Chest (1 view); Complete Time: 16:14 ms3 05/05 15:30 Order name: EKG; Complete Time: 15:31 ms3 05/05 17:42 Order name: CONS Physician Consult EDMS 05/05 17:42 Order name: Heart Healthy EDMS 05/05 15:30 Order name: Cardiac monitoring; Complete Time: 15:33 ms3 05/05 15:30 Order name: EKG - Nurse/Tech; Complete Time: 15:33 ms3 05/05 15:30 Order name: IV Saline Lock; Complete Time: 15:33 ms3 05/05 15:30 Order name: Labs collected and sent; Complete Time: 15:36 ms3 05/05 15:30 Order name: O2 Per Protocol; Complete Time: 15:33 ms3 05/05 15:30 Order name: O2 Sat Monitoring; Complete Time: 15:33 ms3 EC:02 Rate is 38 beats/min. Rhythm is regular. QRS [place] is Normal. [place] interval is normal. QRS ms3 interval is normal. Clinical impression: Sinus bradycardia. Interpreted by me. Reviewed by me. Administered Medications: No medications were administered Disposition Summary: 05/05/23 16:12 Hospitalization Ordered Hospitalization Status: Inpatient Admission ms3 Provider: Rodolfo Epps ms3 Location: Telemetry/MedSurg (Inpatient) ms3 Condition: Stable ms3 Problem: new ms3 Symptoms: are unchanged ms3 Bed/Room Type: Standard ms3 Room Assignment: [facility](05/05/23 18:31) dw Diagnosis - Bradycardia, unspecified ms3 - Pleural effusion, not elsewhere classified ms3 - Muscle weakness (generalized) ms3 Forms: - Medication Reconciliation Form ms3 - SBAR form ms3 - Leadership Thank You Letter ms3 Signatures: Dispatcher [employer] Carmen Green RN RN dw David Franklin DO DO ms3 Apryl Franklin RN RN ld1 Corrections: (The following items were deleted from the chart) 18:31 16:12 ms3 dw
--- NOTE | 2023-05-05 16:13 | ER ---
Nurse's Notes [facility] Name: Magda De Age: 87 yrs Sex: Female : 1935 Arrival Date: 05/05/2023 Time: 15:22 Bed 2 Private MD: Diagnosis: Bradycardia, unspecified;Pleural effusion, not elsewhere classified;Muscle weakness (generalized) Presentation: 05/05 15:29 Chief complaint: EMS states: toned out to [facility] for bradycardia, weakness and ld1 fatigue. Pt reports taking new medication recently per Dr. Ni - Sotalol 80 mg BID. Denies pain. Coronavirus screen: At this time, the client does not indicate any symptoms associated with coronavirus-19. Ebola Screen: No symptoms or risks identified at this time. Initial Sepsis Screen: Does the patient meet any 2 criteria? No. Patient's initial sepsis screen is negative. Does the patient have a suspected source of infection? No. Patient's initial sepsis screen is negative. Risk Assessment: Do you want to hurt yourself or someone else? Patient reports no desire to harm self or others. Onset of symptoms was May 05, 2023. 15:29 Method Of Arrival: EMS: [facility] ld1 15:29 Acuity: OCTAVIO 2 ld1 Triage Assessment: 15:31 General: Appears in no apparent distress. comfortable, Behavior is calm, cooperative, ld1 appropriate for age. Pain: Denies pain. EENT: No signs and/or symptoms were reported regarding the EENT system. Neuro: Level of Consciousness is awake, alert, obeys commands, Oriented to person, place, time, situation. Cardiovascular: Capillary refill < 3 seconds Patient's skin is warm and dry. Cardiovascular: Rhythm is sinus bradycardia. Respiratory: Airway is patent Respiratory effort is even, unlabored. GI: Abdomen is flat, non-distended. : No signs and/or symptoms were reported regarding the genitourinary system. Derm: No signs and/or symptoms reported regarding the dermatologic system. Musculoskeletal: No signs and/or symptoms reported regarding the musculoskeletal system. Historical: - Allergies: 15:31 Tape; ld1 - PMHx: 15:31 High Cholesterol; Hypothyroidism; Atrial fibrillation; ld1 - Immunization history:: Adult Immunizations up to date. - Social history:: Smoking status: Patient denies any tobacco usage or history of. Screenin:32 [facility] ED Fall Risk Assessment (Adult) History of falling in the last 3 months, ld1 including since admission No falls in past 3 months (0 pts). Abuse screen: Denies threats or abuse. Denies injuries from another. Nutritional screening: No deficits noted. Tuberculosis screening: No symptoms or risk factors identified. Assessment: 15:32 Reassessment: ERP at bedside assessing patient. ld1 16:15 Reassessment: Patient appears in no apparent distress at this time. No changes from ld1 previously documented assessment. Patient and/or family updated on plan of care and expected duration. Pain level reassessed. 18:40 Reassessment: Attempted to call report to 4th floor. No answer. Notified Charge nurse. ld1 18:56 Reassessment: Patient appears in no apparent distress at this time. Patient is alert, ld1 oriented x 3, equal unlabored respirations, skin warm/dry/pink. 19:04 Reassessment: Patient appears in no apparent distress at this time. Patient and/or jb4 family updated on plan of care and expected duration. Pain level reassessed. Patient is alert, oriented x 3, equal unlabored respirations, skin warm/dry/pink. 19:26 Reassessment: attempted to call report. Waiting for call back. jb4 19:43 Reassessment: Patient appears in no apparent distress at this time. Patient and/or kl family updated on plan of care and expected duration. Pain level reassessed. Patient states feeling better. Patient states symptoms have improved. Vital Signs: 15:29 BP 139 / 70; Pulse 38; Resp 18; Temp 97.6(O); Pulse Ox 97% on R/A; Weight 68.5 kg; ld1 Height 5 ft. 2 in. ; Pain 0/10; 16:26 BP 133 / 58; Pulse 40; Resp 18; Pulse Ox 97% on R/A; ld1 17:00 BP 154 / 63; Pulse 39; Resp 14; Pulse Ox 95% on R/A; ld1 17:30 BP 155 / 69; Pulse 39; Resp 17; Pulse Ox 95% on R/A; ld1 18:00 BP 120 / 56; Pulse 33; Resp 14; Pulse Ox 92% on R/A; ld1 18:30 BP 132 / 61; Pulse 34; Resp 15; Pulse Ox 94% on R/A; ld1 18:54 BP 138 / 64; Pulse 34; Resp 15; Pulse Ox 94% on R/A; ld1 19:04 Temp 97.3(TE); jb4 19:26 BP 152 / 65; Pulse 42; Resp 16; Pulse Ox 94% on R/A; jb4 19:45 BP 162 / 59; Pulse 42; Resp 17; Pulse Ox 94% on R/A; kl 15:29 Body Mass Index 27.62 (68.50 kg, 157.48 cm) ld1 15:29 Pain Scale: Adult ld1 ED Course: 15:24 Patient arrived in ED. ms3 15:24 David Franklin DO is Attending Physician. ms3 15:26 Apryl Franklin, MARK is Primary Nurse. ld1 15:31 Triage completed. ld1 15:31 Arm band placed on right wrist. EKG completed in triage. Results shown to MD. ld1 15:32 Patient has correct armband on for positive identification. Placed in gown. Bed in low ld1 position. Call light in reach. Side rails up X2. vehicle monitor technician on. Pulse ox on. NIBP on. Door closed. Noise minimized. Warm blanket given. 15:32 No provider procedures requiring assistance completed. Maintain EMS IV. Dressing ld1 intact. Good blood return noted. Site clean \T\ dry. Gauge \T\ site: 20G LFA. 15:37 Basic Metabolic Panel Sent. aa5 15:38 CBC with Diff Sent. aa5 15:38 Troponin HS Sent. aa5 15:38 Initial lab(s) drawn, by wi, sent to lab. EKG done, by ED staff, reviewed by David mmMikey Franklin DO. 16:08 XRAY Chest (1 view) In Process Unspecified. EDMS 16:12 Rodolfo Epps is Hospitalizing Provider. ms3 19:44 Patient admitted, IV remains in place. elijah Administered Medications: No medications were administered Medication: 15:32 VIS not applicable for this client. ld1 Outcome: 16:12 Decision to Hospitalize by Provider. ms3 19:44 Admitted to Med/surg via wheelchair, with chart, Report called to Nena nava 19:44 Condition: stable 19:44 Discharge instructions given to patient, family, Instructed on the need for admit, Demonstrated understanding of instructions. 19:54 Patient left the ED. jb4 Signatures: Dispatcher [employer] EDMiguelina Scales, RN Theodora Garcia RN RN aa5 Eugenio Roy RN RN jb4 David Franklin DO DO ms3 Apryl Franklin RN RN ld1 Joelle Lepe mm9
[2023-05-05] MEDS ORDERED: ACETAMINOPHEN 325 MG TABLET PO PRN (17:30)
[2023-05-05] MEDS ORDERED: ONDANSETRON 4 MG/2 ML VIAL IV PRN (17:39)
--- NOTE | 2023-05-05 17:50 | P.HP ---
Certification for Inpatient Patient admitted to: Observation With expected LOS: <2 Midnights Patient will require the following post-hospital care: None Practitioner: I am a practitioner with admitting privileges, knowledge of patient current condition, hospital course, and medical plan of care. Services: Services provided to patient in accordance with Admission requirements found in Title 42 Section 412.3 of the Code of Federal Regulations Patient History Date of Service: 05/05/23 Reason for admission: Bradycardia History of Present Illness: Patient is an 87-year-old female with a past medical history significant for A- fib, hyperlipidemia, hypothyroidism presents with complaint of bradycardia. Patient lives in assisted living facility. Patient reported that she was about to have physical therapy today when her vital signs revealed that heart rate was low--in the 30s. Patient reported associated signs and symptoms of nausea, fatigue and weakness. Patient's reports chronic left knee pain rated as 7/10 in severity and described as throbbing in quality. Patient denies any other signs and symptoms. Symptoms are aggravated or relieved by nothing. Patient was brought to the hospital for medical evaluation. Of note, patient was recently placed on sotalol by maxillofacial surgeon in the last hospital admission. Allergies adhesive tape Adverse Reaction (Verified 04/18/23 19:46) Itching Home Medications: Acetaminophen [Tylenol Extra Strength] 2 tab PO BIDWM 04/18/23 Apixaban [Eliquis] 1 tab PO BID 04/18/23 Buspirone HCl [Buspar*] 1 tab PO BID 04/18/23 Ca Citrate/Mgox/Vit D3/B6/Min [Citracal Plus Tablet] 2 tab PO DAILY 04/18/23 Cyanocobalamin (Vitamin B-12) [Vitamin B-12] 1 tab PO DAILY 04/18/23 Hydrocodone 7.5/APAP 325 [[place] 7.5/325 mg*] 1 tab PO BIDP PRN 04/18/23 Levothyroxine [Synthroid*] 125 mcg PO [id number] 04/18/23 Apixaban [Eliquis] 5 mg PO BID #60 tab 04/21/23 Atorvastatin Calcium [Lipitor] 1 tab PO BEDTIME #30 tab 04/21/23 Sotalol HCl [Betapace*] 80 mg PO BID 6AM 6PM #60 tab 04/21/23 - Past Medical/Surgical History Diabetic: No -: Hypothyroidism -: Atrial fibrillation -: Hypercholesterolemia -: hypertension -: osteoarthritis -: Knee surgery - Family History Family History: Reviewed- Non-Contributory - Social History Smoking Status: Never smoker Alcohol use: No CD- Drugs: No Caffeine use: Yes Place of Residence: Home Review of Systems General: Weakness, Other (Fatigue) Eyes: Unremarkable ENT: Unremarkable Respiratory: Unremarkable Cardiovascular: Unremarkable Gastrointestinal: Nausea Genitourinary: Unremarkable Musculoskeletal: Other (Left knee pain.) Integumentary: Unremarkable Neurological: Weakness Lymphatics: Unremarkable Physical Examination - Physical Exam General: Alert, In no apparent distress, Oriented x3, Cooperative HEENT: Atraumatic, PERRLA, Mucous membr. moist/pink, EOMI, Sclerae nonicteric Neck: Supple, 2+ carotid pulse no bruit, No LAD, Without JVD or thyroid abnormality Respiratory: Clear to auscultation bilaterally, Normal air movement Cardiovascular: No edema, Normal S1 S2, Irregular heart rate/rhythm Capillary refill: <2 Seconds Gastrointestinal: Normal bowel sounds, Non-distended, No tenderness Musculoskeletal: No clubbing, Tenderness Integumentary: No rashes, No significant lesion Neurological: Normal speech, Normal tone, Normal affect Lymphatics: No axilla or inguinal lymphadenopathy - Studies Laboratory Data (last 24 hrs) 05/05/23 05/05/23 15:35 15:35 WBC 6.60 Hgb 10.7 L Hct 33.3 L Plt Count 223 Sodium 136 Potassium 4.4 BUN 12 Creatinine 0.64 Glucose 106 Assessment and Plan - Plan --Bradycardia. Patient recently placed on sotalol by maxillofacial surgeon on last admission. Grain Wafer Machine Operator consulted. Telemetry to monitor for any malignant arrhythmia. Will await further recommendation from maxillofacial surgeon. --Atrial fibrillation. Continue Eliquis. --Osteoarthritis. Patient complains of severe left knee pain due to osteoarthritis. We will manage pain with current medication regimen. --Abnormality of gait and mobility. PT eval and treat. Continue supportive care. --Hyperlipidemia. Continue statin. --Hypothyroidism. Continue Synthroid. -- Nausea. Antiemetics on board. Continue supportive care -- Anemia of chronic disease. H&H stable. We will continue to monitor hemoglobin and transfuse if less than 7.0. --DVT prophylaxis with Eliquis. Discharge Plan: Home Plan to discharge in: 48 Hours - Advance Directives Does patient have a Living Will: Yes Does patient have a Durable POA for Healthcare: Yes - Code Status/Comfort Care Code Status Assessed: Yes Physician Review: Patient Assessed, Agree with Above Assessment and Plan Critical Care: No
[2023-05-05 18:38] LABS: Phosphorus 3.4 mg/dL (2.5-4.9)
[2023-05-05 18:42] LABS: Thyroid Stimulating Hormone 8.4 uIU/mL (0.358-3.740)
[2023-05-05] MEDS: APIXABAN 5 MG TABLET PO SCH (20:52)
[2023-05-05] MEDS ORDERED: HYDROCODONE/APAP 7.5/325 MG TAB PO PRN (23:05)
[2023-05-05] MEDS ORDERED: MELATONIN 5 MG TABLET PO PRN (23:09)
[2023-05-05] MEDS: ATORVASTATIN 40 MG TAB PO SCH (23:38)
[2023-05-05] MEDS: BUSPIRONE HCL 5 MG TABLET PO SCH (23:38)
[2023-05-05] MEDS: HYDROCODONE/APAP 5/325 MG TAB PO PRN (23:49)
[2023-05-06 01:58] VITALS: BMI 24.7
[2023-05-06] MEDS: LEVOTHYROXINE SOD 0.125 MG TAB PO SCH (06:28)
--- NOTE | 2023-05-06 07:32 | P.PN ---
Date of Service: 05/06/23 Subjective: Doing okay HR remains in low 40s no acute events overnight +chronic L knee pain ~unchanged ROS: 10 point ROS as noted above, otherwise negative Physical Exam: GEN: Alert, oriented, NAD HEENT: Normal conjunctiva, sclera anicteric CV: Sinus Bradycardia, no edema Pulm: Nonlabored respirations on room air ABD: Soft, nontender, nondistended Neuro: Normal speech, normal affect vitals reviewed Problem List: Bradycardia Atrial fibrillation, chronic Osteoarthritis of L knee Abnormality of gait and mobility. Hyperlipidemia. Hypothyroidism Nausea Anemia of chronic disease Bradycardia. Atrial fibrillation, chronic Patient recently placed on sotalol by development technical lead on last admission for afib with RVR Gravel Inspector consulted. sotalol on hold given low HR consider sotalol at lower dose - 40mg BID monitor on telemetry HR currently in 40s Osteoarthritis of L knee Abnormality of gait and mobility Patient complains of severe left knee pain due to osteoarthritis. PT consult PRN pain medication Hyperlipidemia. Continue statin. Hypothyroidism. Continue Synthroid. Nausea. PRN Antiemetics. Continue supportive care Anemia of chronic disease. Monitor H&H. transfuse if hgb < 7 VTE: Home eliquis Code: Full Dispo: Home, 24-48 hrs
[2023-05-06 07:34] LABS: Absolute Lymphocytes (CBC) 1.6 K/uL (0.7-4.9); Hematocrit 31.1 % (36.0-45.0); Lymphocytes % 29.8 % (15.3-44.8); MCV 100.4 fL (80-100); Platelets 206 thou/uL (152-406)
[2023-05-06 07:49] LABS: Potassium 4.4 mEq/L (3.5-5.1)
[2023-05-06] MEDS ORDERED: ENOXAPARIN 40 MG/0.4 ML SQ SCH (09:00)
[2023-05-06] MEDS: ASPIRIN 81 MG CHEWABLE TABLET PO SCH (09:34)
[2023-05-06] MEDS: APIXABAN 5 MG TABLET PO SCH ×2 (09:34→21:44)
[2023-05-06] MEDS: BUSPIRONE HCL 5 MG TABLET PO SCH ×2 (09:34→21:44)
[2023-05-06] MEDS: HYDROCODONE/APAP 5/325 MG TAB PO PRN (09:40)
--- NOTE | 2023-05-06 17:03 | EKG ---
Test Date: 2023-05-05 Test Time: 15:33:25 Salvage Inspector [employer]: GEOFFREY MEASUREMENT RESULTS: Intervals: Rate: 39 ND: 180 QRSD: 64 QT: 536 QTc: 431 [place]: P: 90 ND: 180 QRS: 66 T: 73 INTERPRETIVE STATEMENTS: Marked sinus bradycardia Low voltage QRS Abnormal ECG Compared to ECG 05/05/2023 15:32:47 No significant changes Electronically Signed On 05-06-23 17:02:40 CDT by Brian Ni
--- NOTE | 2023-05-06 17:03 | EKG ---
Test Date: 2023-05-05 Test Time: 15:32:47 Needle Board Repairer: GEOFFREY MEASUREMENT RESULTS: Intervals: Rate: 38 TN: 188 QRSD: 64 QT: 530 QTc: 421 [place]: P: 59 TN: 188 QRS: 65 T: 68 INTERPRETIVE STATEMENTS: Marked sinus bradycardia Low voltage QRS Abnormal ECG Compared to ECG 04/21/2023 11:31:39 No significant changes Electronically Signed On 05-06-23 17:02:42 CDT by Brian Ni
[2023-05-06] MEDS: ATORVASTATIN 40 MG TAB PO SCH (21:44)
[2023-05-07 05:25] LABS: Specific Gravity 1.015 (1.005-1.030); Urine Bilirubin NEGATIVE (Negative); Urine Blood Negative (Negative); Urine Clarity Clear (Clear); Urine Color Light-Yellow (Yellow); Urine Glucose NEGATIVE (Negative); Urine Protein NEGATIVE (Negative); Urine Urobilinogen Normal (Normal); Urine pH 6.5 (5.0-7.0)
[2023-05-07] MEDS: LEVOTHYROXINE SOD 0.125 MG TAB PO SCH (06:06)
[2023-05-07 07:27] LABS: Magnesium 1.9 mg/dL (1.6-2.4); Potassium 4.3 mEq/L (3.5-5.1)
--- NOTE | 2023-05-07 07:54 | P.PN ---
Date of Service: 05/07/23 Subjective: denies chest pain, no dizziness/lightheadedness HR slowly improving (40-50s) +chronic L knee pain ~unchanged no acute events overnight ROS: 10 point ROS as noted above, otherwise negative Physical Exam: GEN: Alert, oriented, NAD HEENT: Normal conjunctiva, sclera anicteric CV: Sinus Bradycardia, no edema Pulm: Nonlabored respirations on room air ABD: Soft, nontender, nondistended Neuro: Normal speech, normal affect vitals reviewed Problem List: Bradycardia Atrial fibrillation, chronic Osteoarthritis of L knee Abnormality of gait and mobility. Hyperlipidemia. Hypothyroidism Nausea Anemia of chronic disease Bradycardia. Atrial fibrillation, chronic Patient recently placed on sotalol by technical sales support manager on last admission for afib with RVR Esthetic Dermatologist consulted. sotalol on hold given low HR consider sotalol at lower dose - 40mg BID monitor on telemetry HR currently in 40-50s Osteoarthritis of L knee Abnormality of gait and mobility Patient complains of severe left knee pain due to osteoarthritis. PT consult PRN pain medication Hyperlipidemia. Continue statin. Hypothyroidism. Continue Synthroid. Nausea. PRN Antiemetics. Continue supportive care Anemia of chronic disease. Monitor H&H. transfuse if hgb < 7 VTE: Home eliquis Code: Full Dispo: Home, 24-48 hrs Pending improved HR
[2023-05-07] MEDS: BUSPIRONE HCL 5 MG TABLET PO SCH ×2 (10:04→20:53)
[2023-05-07] MEDS: ASPIRIN 81 MG CHEWABLE TABLET PO SCH (10:04)
[2023-05-07] MEDS: APIXABAN 5 MG TABLET PO SCH ×2 (10:04→20:53)
[2023-05-07] MEDS: HYDROCODONE/APAP 7.5/325 MG TAB PO PRN ×2 (10:11→21:47)
[2023-05-07] MEDS: ATORVASTATIN 40 MG TAB PO SCH (20:53)
[2023-05-08] MEDS: LEVOTHYROXINE SOD 0.125 MG TAB PO SCH (05:55)
[2023-05-08] MEDS: HYDROCODONE/APAP 7.5/325 MG TAB PO PRN ×2 (05:56→18:40)
--- NOTE | 2023-05-08 07:21 | P.PN ---
Date of Service: 05/08/23 Subjective: doing okay; HR increased, tachy overnight; started sotalol this morning denies chest pain, breathing comfortably on room air +chronic L knee pain ~unchanged otherwise no new / worsening problems ROS: 10 point ROS as noted above, otherwise negative Physical Exam: GEN: Alert, oriented, NAD HEENT: Normal conjunctiva, sclera anicteric CV: irregularly irregular, rate: 80-90s, no edema Pulm: Nonlabored respirations on room air ABD: Soft, nontender, nondistended Neuro: Normal speech, normal affect vitals reviewed Problem List: Bradycardia Atrial fibrillation, chronic Osteoarthritis of L knee Abnormality of gait and mobility Hyperlipidemia Hypothyroidism Nausea Anemia of chronic disease Bradycardia. Atrial fibrillation, chronic Patient recently placed on sotalol by letter stamping machine operator on last admission for afib with RVR Residential Supervisor consulted. Restarted sotalol at lower dose - 40mg BID on 05/08 monitor on telemetry HR currently in 80-90s Osteoarthritis of L knee Abnormality of gait and mobility Patient complains of severe left knee pain due to osteoarthritis. Patient reports she previously planned on following up with Dr. Lamb for better pain control / surgical intervention reached out to Dr. Lamb, will follow up with patient, anticipates procedure rescheduled for next week, outpatient PT consult PRN pain medication Hyperlipidemia. Continue statin. Hypothyroidism. Continue Synthroid. Nausea. PRN Antiemetics. Continue supportive care Anemia of chronic disease. Monitor H&H. transfuse if hgb < 7 VTE: Home eliquis Code: Full Dispo: Home, possibly tomorrow Pending improved / stable HR
[2023-05-08] MEDS: ASPIRIN 81 MG CHEWABLE TABLET PO SCH (09:50)
[2023-05-08] MEDS: SOTALOL HCL 80 MG TAB PO SCH ×2 (09:50→18:16)
[2023-05-08] MEDS: APIXABAN 5 MG TABLET PO SCH ×2 (09:50→20:35)
[2023-05-08] MEDS: BUSPIRONE HCL 5 MG TABLET PO SCH ×2 (09:50→20:35)
--- NOTE | 2023-05-08 20:03 | PN ---
Date of Progress Note: 05/08/2023 Subjective: Seen by bedside. She went into atrial fibrillation and heart rate went up to 110 and re started on sotalol and heart rate is back down. She is doing well. Review of Systems: No chest pain, shortness of breath, orthopnea, cough. No nausea, vomiting, diarrhea. All other syst ems reviewed are negative. Physical Examination: Vital Signs: Reviewed. Head and Neck: Pupils are equal, reactive to light. Intact eye movements. No JVD. No cervical lym phadenopathy. Neck is supple. Thyroid is not enlarged. Lungs: Clear to auscultation bilaterally. No rhonchi, wheezing, or crackles. No accessory muscle u se. Heart: Regular rate and rhythm. No extra sounds. Abdomen: Soft, nontender. Bowel sounds positive. No organomegaly. No masses or hernia. No rigidi ty or rebound. Extremities: No edema, clubbing, or cyanosis. Intact pulses. Skin: No rash. Neurologic: Alert, awake, oriented x3. No acute focal deficits appreciated. Investigations: BUN 15, creatinine 0.67. Hemoglobin is 10.2. Assessment/recommendations: 1.Severe bradycardia due to sotalol. She was on 80 mg twice a day. This was held and heart rate we nt back up and now she is in atrial fibrillation. See below. 2.Atrial fibrillation with rapid ventricular response. Resume sotalol at 40 mg twice a day and tiffanie tor carefully. If she goes severely bradycardic again, then she will need a pacemaker backup implantation. 3.Dyslipidemia. Continue statin. SR/MODL Voice ID: [id number] Report ID: [id number]
[2023-05-08] MEDS: ATORVASTATIN 40 MG TAB PO SCH (20:35)
[2023-05-09] MEDS: HYDROCODONE/APAP 7.5/325 MG TAB PO PRN ×2 (00:03→05:25)
[2023-05-09] MEDS: SOTALOL HCL 80 MG TAB PO SCH (05:14)
[2023-05-09] MEDS: LEVOTHYROXINE SOD 0.125 MG TAB PO SCH (05:14)
[2023-05-09] MEDS: APIXABAN 5 MG TABLET PO SCH (08:31)
[2023-05-09] MEDS: ASPIRIN 81 MG CHEWABLE TABLET PO SCH (08:31)
[2023-05-09] MEDS: BUSPIRONE HCL 5 MG TABLET PO SCH (08:31)
--- NOTE | 2023-05-09 12:28 | P.DS ---
Admission Date: 05/07/23 Discharge Date: 05/09/23 Reason for Admission: Bradycardia Consultations: Cardiology - Dr. Ni Brief History of Present Illness: 87 yo F, PMH: A-fib, hyperlipidemia, hypothyroidism Patient presents with complaint of bradycardia. Patient lives in assisted living facility. Patient reported that she was about to have physical therapy today when her vital signs revealed that heart rate was low--in the 30s. Patient reported associated signs and symptoms of nausea, fatigue and weakness. Patient's reports chronic left knee pain rated as 7/10 in severity and described as throbbing in quality. Patient denies any other signs and symptoms. Symptoms are aggravated or relieved by nothing. Patient was brought to the hospital for medical evaluation. Of note, patient was recently placed on sotalol by manager dental in the last hospital admission. Hospital Course: Problem List: Bradycardia secondary to sotalol Atrial fibrillation, chronic Osteoarthritis of L knee Abnormality of gait and mobility Hyperlipidemia Hypothyroidism Nausea Anemia of chronic disease Patient presented with Bradycardia with HR in the low 30s. Cardiology was consulted. Patients home sotalol (80mg BID) was held and patient HR improved to the 80-90s. During her hospitalizaiton, patient went into A-fib with RVR after her sotatol was held and was restarted on a low dose (40 mg BID). Patients HR stabilized but remained in a-fib. Dr. Ni recommends to follow up as outpatient for further management / work up. If patient goes into severe Bradycardia again, cardio recommends pacemaker backup implantation. Medications: change: Sotalol decreased to 40 mg twice a day continue other home medications as previously prescribed Follow up: PCP 3-5 days Cardiology 1-[address] Labm and plans for next week to go ahead with previously planned outpatient procedure for her ongoing chronic knee pain. Dr. Lamb office will call and reach out this afternoon or Friday to set up date for procedure. Advised to call his office Friday if no one reaches out by then. Physical Exam: GEN: Alert, oriented, NAD HEENT: Normal conjunctiva, sclera anicteric CV: irregularly irregular, rate: 80s, no edema Pulm: Nonlabored respirations on room air ABD: Soft, nontender, nondistended Neuro: Normal speech, normal affect Vital Signs/Physical Exam: Temp Pulse Resp BP Pulse Ox 98.1 F 82 16 125/70 96 08/18/23 08:00 05/09/23 08:00 05/09/23 08:00 05/09/23 08:00 05/09/23 08:00 Laboratory Data at Discharge: WBC 5.50 thou/uL (4.3-10.9) 05/06/23 06:58 Hgb 10.2 g/dL (12.0-15.0) L 05/06/23 06:58 Hct 31.1 % (36.0-45.0) L 05/06/23 06:58 Plt Count 206 thou/uL (152-406) 05/06/23 06:58 Sodium 136 mEq/L (136-145) 05/07/23 06:42 Potassium 4.3 mEq/L (3.5-5.1) 05/07/23 06:42 BUN 15 mg/dL (7-18) 05/07/23 06:42 Creatinine 0.67 mg/dL (0.55-1.02) 05/07/23 06:42 Glucose 94 mg/dL (74-106) 05/07/23 06:42 Phosphorus 3.4 mg/dL (2.5-4.9) 05/05/23 15:35 Magnesium 1.9 mg/dL (1.6-2.4) 05/07/23 06:42 Home Medications: Acetaminophen [Tylenol Extra Strength] 2 tab PO BIDWM 04/18/23 Buspirone HCl [Buspar*] 1 tab PO BID 04/18/23 Ca Citrate/Mgox/Vit D3/B6/Min [Citracal Plus Tablet] 2 tab PO DAILY 04/18/23 Cyanocobalamin (Vitamin B-12) [Vitamin B-12] 1 tab PO DAILY 04/18/23 Hydrocodone 7.5/APAP 325 [[place] 7.5/325 mg*] 1 tab PO BIDP PRN 04/18/23 Levothyroxine [Synthroid*] 125 mcg PO [id number] 04/18/23 Apixaban [Eliquis] 5 mg PO BID #60 tab 04/21/23 Atorvastatin Calcium [Lipitor] 1 tab PO BEDTIME #30 tab 04/21/23 Sotalol HCl [Betapace*] 0.5 tab PO BID 30 Days #30 tab 05/09/23 New Medications: Sotalol HCl [Betapace*] 0.5 tab PO BID 30 Days #30 tab Physician Discharge Instructions: Patient presented with Bradycardia with HR in the low 30s. Cardiology was consulted. Patients home sotalol (80mg BID) was held and patient HR improved to the 80-90s. During her hospitalizaiton, patient went into A-fib with RVR after her sotatol was held and was restarted on a low dose (40 mg BID). Patients HR stabilized but remained in a-fib. Dr. Ni recommends to follow up as outpatient for further management / work up. If patient goes into severe Bradycardia again, cardio recommends pacemaker backup implantation. Medications: change: Sotalol decreased to 40 mg twice a day continue other home medications as previously prescribed Follow up: PCP 3-5 days Cardiology 1-[address] Lamb and plans for next week to go ahead with previously planned outpatient procedure for her ongoing chronic knee pain. Dr. Lamb office will call and reach out this afternoon or Friday to set up date for procedure. Advised to call his office Friday if no one reaches out by then. Followup: Tl Velasquez MD [Primary Care Provider] - 1 Week (Please call to schedule an appointment. ) Time spent managing pt's care (in minutes): 45
[2023-05-09 17:17] VITALS: BP 143/83; TEMP 99.8; O2SAT 96
--- NOTE | 2023-05-09 19:41 | PN ---
Date of Progress Note: 05/09/2023 Subjective: Seen by bedside. She is doing well. Heart rate is in the mid 60s to mid 70s. No dizzi ness. Review of Systems: No chest pain, shortness of breath, orthopnea, or cough. No nausea, vomiting, or diarrhea. All othe r systems were reviewed, they were negative. Physical Examination: Vital Signs: Reviewed. Head and Neck: Pupils are equal, reactive to light. Intact eye movements. No JVD. No cervical lym phadenopathy. Neck is supple. Thyroid is not enlarged. Lungs: Clear to auscultation bilaterally. No rhonchi, wheezing, or crackles. No accessory muscle u se. Heart: Irregularly irregular. No extra sounds. Abdomen: Soft, nontender. Bowel sounds positive. No organomegaly. No masses or hernia. No rigidi ty or rebound. Extremities: No edema, clubbing, or cyanosis. Intact pulses. Skin: No rash. No nodule. Neurologic: Alert, awake. No acute focal deficits appreciated. Lymph Nodes: No cervical or axillary lymphadenopathy. Investigations: Labs reviewed. Assessment And Recommendations: 1.Severe bradycardia due to sotalol. Dose was decreased to 40 mg twice a day. Heart rate is in the acceptable range. Continue that as well as the Eliquis. 2.Atrial fibrillation, now rate is controlled. Continue sotalol, Eliquis, and plan to follow up wit h me in the office in 1 week. If further bradycardia happen with this low dose of sotalol, then we will plan for pacemaker implantation. 3.Dyslipidemia. Continue statin. SR/MODL Voice ID: [id number] Report ID: [id number]
--- NOTE | 2023-05-12 18:10 | EKG ---
Test Date: 2023-05-07 Test Time: 21:29:08 Drawer In Stitch Bonding Machine: JET MEASUREMENT RESULTS: Intervals: Rate: 131 [place]: QRSD: 64 QT: 300 QTc: 443 [place]: P: [place]: QRS: 32 T: 181 INTERPRETIVE STATEMENTS: Atrial fibrillation with rapid ventricular response ST & T wave abnormality, consider inferior ischemia or digitalis effect Abnormal ECG Compared to ECG 05/05/2023 15:33:25 ST (T wave) deviation now present Possible ischemia now present Sinus bradycardia no longer present Electronically Signed On 05-12-23 18:01:16 CDT by Brian Ni
== END 2023-05-09 17:00 | disposition home or self-care (01) | DRG 310 ==
LOC: ER 15:22 → ERHOLD 17:29 → 4TH 19:11 → OBSVTOIN 05-07 12:33
PROVIDERS: ADMIT Internal Medicine; ATTEND Hospitalist
DX: R00.1 Bradycardia, unspecified (principal); I48.20 Chronic atrial fibrillation, unspecified; E03.9 Hypothyroidism, unspecified; D63.8 Anemia in other chronic diseases classified elsewhere; E78.00 Pure hypercholesterolemia, unspecified; G89.29 Other chronic pain; M17.12 Unilateral primary osteoarthritis, left knee; T44.7X5A Adverse effect of beta-adrenoreceptor antagonists, initial encounter; Z79.01 Long term (current) use of anticoagulants; Z91.048 Other nonmedicinal substance allergy status; Z79.890 Hormone replacement therapy; Z79.899 Other long term (current) drug therapy
CPT/HCPCS: 36415; 71045; 80048; 81003; 83735; 84100; 84439; 84443; 84484; 85025; 93005; 97110; 97116; 97162; 97530; 99285; G0378